=== PATIENT | female | born 2000 | race Caucasian/White ===

== ENCOUNTER 2020-07-02 13:28 | Emergency (ER) | payer BC ==
[2020-07-02] MEDS ORDERED: Zofran 4 MG/2 ML VIAL IV ONE (13:41)
[2020-07-02] MEDS ORDERED: Sodium Chloride 0.9% 1000 ML 1,000 ML IV STA (13:41)
[2020-07-02 13:47] VITALS: O2SAT 98
[2020-07-02] MEDS ORDERED: Sodium Chloride 0.9% 1000 ML 1,000 ML ONE (13:54)
[2020-07-02] MEDS ORDERED: Zofran 4 MG/2 ML VIAL ONE (13:54)
[2020-07-02 14:02] LABS: Absolute Neutrophil Ct (ANC) 8.12 (1.4-6.9); BASOPHIL % 0.3 % (0.0-0.4); Basophil (Absolute #) 0.03 (0-0.4); Eosinophil % 0.2 % (0.00-5.0); Eosinophil (Absolute #) 0.02 (0-0.5); Hematocrit 33.5 % (35-47); Hemoglobin 11.3 gm/dl (12.0-16.0); Lymphocyte (Absolute #) 1.54 (1.0-4.6); Lymphocytes % 14.8 % (24.0-44.0); Mean Cell Volume 89.8 fl (78-100); Mean Corpuscular Hemoglobin 30.3 pg (26-32); Mean Corpuscular Hgb Concent. 33.7 g/dl (32-36); Mean Platelet Volume 11.9 fl (7.5-11.0); Monocyte (Absolute #) 0.72 (0.0-1.3); Monocytes % 6.9 % (0.0-12.0); Neutrophil % 77.8 % (36.0-66.0); Platelet Count 235 K/mm3 (150-450); Red Blood Count 3.73 M/mm3 (4.1-5.4); Red Cell Distribution Width 13.6 % (11.5-14.0); White Blood Count 10.4 K/mm3 (4.0-10.5)
[2020-07-02 14:07] LABS: ALBUMIN 4.1 g/dL (3.5-5.0); ALKALINE PHOSPHATASE 57 U/L (38-126); ANION GAP 9.5 MEQ/L (5-15); BLOOD UREA NITROGEN 6 mg/dL (7-17); CHLORIDE 103 mmol/L (98-107); Calcium 9.3 mg/dL (8.4-10.2); Carbon Dioxide 26 mmol/L (22-30); Creatinine 1 0.58 mg/dL (0.52-1.04); EST GLOMERULAR FILTRATION RATE > 60.0 ML/MIN; Glucose 110 mg/dL (74-106); Potassium 3.2 mmol/L (3.5-5.1); SGOT/AST 20 U/L (14-36); SGPT/ALT 17 U/L (0-35); SODIUM 135 mmol/L (137-145); Total Protein 7.5 g/dL (6.3-8.2)
[2020-07-02 14:07] LABS: Appearance SLIGHTLY CLOUDY (CLEAR); Bilirubin NEGATIVE (NEGATIVE); Blood NEGATIVE Ery/ul (0-5); Epithelial Cells RARE /HPF (FEW); Glucose NEGATIVE (NEGATIVE); Ketones SMALL (NEGATIVE); Leukocyte Esterase NEGATIVE (NEGATIVE); Mucus SLIGHT /HPF (NEGATIVE); Nitrite NEGATIVE (NEGATIVE); Protein,Urine Dip 30 (Negative); Specific Gravity 1.016 (1.005-1.025); Urobilinogen NEGATIVE mg/dL (0-1)
[2020-07-02] MEDS ORDERED: Klor Con 10 MEQ PO ONE ×2 (14:17→14:19)
--- NOTE | 2020-07-02 14:29 | ERPHSYRPT ---
- History of Present Illness Time Seen by Provider: 07/02/20 14:00 Source: patient Exam Limitations: no limitations Patient Subjective Stated Complaint: pt here for nausea and vomiting 7 times today, she states her meds she was rx is not helping, she is 17 and 5 days pregn ant. Triage Nursing Assessment: pt alert, walked in, resp easy, skin w/d/p, face mask in place, abd soft, no vagianl dc Physician History: Patient is a 16-year-old female G1, P0 currently 17 weeks and 5 days presents to our ED for nausea and vomiting. Patient vomited approximately 7 times today. Patient called her [employer] physician who advised her to come to our ED. Patient otherwise asymptomatic. No fever. No vaginal pain. No vaginal discharge. No pelvic cramping. No chest pain or shortness of breath. Symptoms are mild to moderate in intensity. No specific worsening or improving factors. Patient voices no other complaints or concerns at this time. Timing/Duration: today Severity: moderate Modifying Factors: Improves With: nothing Associated Symptoms: nausea, vomiting, No abdominal pain, No shortness of breath, No heartburn, No diaphoresis, No cough, No chills, No chest pain, No fever, No headaches, No loss of appetite, No malaise Allergies/Adverse Reactions: Sulfa (Sulfonamide Antibiotics) Allergy (Verified 07/02/20 13:40) Home Medications: Doxylamine Succinate/Vit B6 [Diclegis Dr 10-10 mg Tablet] 2 ea DAILY 07/02/20 [History] Vit 87/Iron/Folic/Dha [Prenate Mini Softgel] 1 ea DAILY 07/02/20 [History] Hx Influenza Vaccination/Date Given: No Hx Pneumococcal Vaccination/Date Given: No Immunizations Up to Date: Yes Travel Risk - International Travel Have you traveled outside of the country in past 3 weeks: No - Coronavirus Screening Are you exhibiting any of the following symptoms?: No Close contact with a COVID-19 positive Pt in past 14-21 Days: No - Review of Systems Constitutional: No Symptoms, No Fever, No Chills Eyes: No Symptoms Ears, Nose, & Throat: No Symptoms Respiratory: No Symptoms, No Cough, No Dyspnea Cardiac: No Symptoms, No Chest Pain, No Edema, No Syncope Abdominal/Gastrointestinal: No Symptoms, No Abdominal Pain, No Nausea, No Vomiting, No Diarrhea Genitourinary Symptoms: No Symptoms, No Dysuria Musculoskeletal: No Symptoms, No Back Pain, No Neck Pain Skin: No Symptoms, No Rash Neurological: No Symptoms, No Dizziness, No Focal Weakness, No Sensory Changes Psychological: No Symptoms Endocrine: No Symptoms Hematologic/Lymphatic: No Symptoms Immunological/Allergic: No Symptoms All Other Systems: Reviewed and Negative - Past Medical History Pertinent Past Medical History: No - Past Surgical History Past Surgical History: Yes - Social History Smoking Status: Never smoker Exposure to second hand smoke: No Drug Use: none Patient Lives Alone: No - Female History Hx Now: Yes Expected Date of Delivery: 12/05/20 - Nursing Vital Signs Nursing Vital Signs: Initial Vital Signs Temperature 98.3 F 07/02/20 13:41 Pulse Rate 104 H 07/02/20 13:41 Respiratory Rate 18 07/02/20 13:41 Blood Pressure 116/65 07/02/20 13:41 O2 Sat by Pulse Oximetry 98 07/02/20 13:41 Pain Scale Pain Intensity 0 - Physical Exam General Appearance: no apparent distress, alert Eye Exam: PERRL/EOMI, eyes nml inspection Ears, Nose, Throat Exam: normal ENT inspection, TMs normal, pharynx normal, moist mucous membranes Neck Exam: normal inspection, non-tender, supple, full range of motion Respiratory Exam: normal breath sounds, lungs clear, No respiratory distress Cardiovascular Exam: regular rate/rhythm, normal heart sounds, normal peripheral pulses Gastrointestinal/Abdomen Exam: soft, normal bowel sounds, No tenderness, No mass Back Exam: normal inspection, normal range of motion, No CVA tenderness, No vertebral tenderness Extremity Exam: normal inspection, normal range of motion, pelvis stable Neurologic Exam: alert, oriented x 3, cooperative, normal mood/affect, nml cerebellar function, nml station & gait, sensation nml, No motor deficits Skin Exam: normal color, warm, dry, No rash Lymphatic Exam: No adenopathy SpO2 Interpretation: normal SpO2: 98 O2 Delivery: Room Air - Course Nursing assessment & vital signs reviewed: Yes Ordered Tests: Active Orders 24 hr Category Date Time Status IV Insertion STAT Care 07/02/20 13:41 Active CBC W DIFF Stat Lab 07/02/20 13:45 Completed CMP Stat Lab 07/02/20 13:45 Completed HCG QUALITATIVE,SERUM Stat Lab 07/02/20 13:45 Completed UA W/RFX UR CULTURE Stat Lab 07/02/20 13:52 Completed Medication Summary Generic Name Dose Route Start Last Admin Trade Name Freq PRN Reason Stop Dose Admin Sodium Chloride 1,000 mls @ 999 mls/hr 07/02/20 13:41 07/02/20 13:57 Sodium Chloride 0.9% 1000 Ml IV 07/02/20 14:41 999 mls/hr .Q1H1M STA Administration Discontinued Medications Generic Name Dose Route Start Last Admin Trade Name Freq PRN Reason Stop Dose Admin Sodium Chloride Confirm 07/02/20 13:54 Sodium Chloride 0.9% 1000 Ml Administered 07/02/20 13:55 Dose 1,000 mls @ ud .ROUTE .STK-MED ONE Ondansetron HCl 4 mg 07/02/20 13:41 07/02/20 13:58 Zofran 4 Mg/2 Ml Vial IV 07/02/20 13:42 4 mg STAT ONE Administration Ondansetron HCl Confirm 07/02/20 13:54 Zofran 4 Mg/2 Ml Vial Administered 07/02/20 13:55 Dose 4 mg .ROUTE .STK-MED ONE Potassium Chloride 40 meq 07/02/20 14:17 07/02/20 14:20 Klor Con 10 Meq PO 07/02/20 14:18 40 meq STAT ONE Administration Potassium Chloride Confirm 07/02/20 14:19 Klor Con 10 Meq Administered 07/02/20 14:20 Dose 40 meq PO .STK-MED ONE Lab/Rad Data: Laboratory Result Diagrams 07/02/20 13:45 07/02/20 13:45 Laboratory Results 07/02/20 07/02/20 07/02/20 Range/Units 13:52 13:45 13:45 WBC (4.0-10.5) K/mm3 RBC (4.1-5.4) M/mm3 Hgb (12.0-16.0) gm/dl Hct (35-47) % MCV (78-100) fl MCH (26-32) pg MCHC (32-36) g/dl RDW (11.5-14.0) % Plt Count (150-450) K/mm3 MPV (7.5-11.0) fl Gran % (36.0-66.0) % Eos # (Auto) (0-0.5) Absolute Lymphs (auto) (1.0-4.6) Absolute Monos (auto) (0.0-1.3) Lymphocytes % (24.0-44.0) % Monocytes % (0.0-12.0) % Eosinophils % (0.00-5.0) % Basophils % (0.0-0.4) % Absolute Granulocytes (1.4-6.9) Basophils # (0-0.4) Sodium 135 L (137-145) mmol/L Potassium 3.2 L (3.5-5.1) mmol/L Chloride 103 (98-107) mmol/L Carbon Dioxide 26 (22-30) mmol/L Anion Gap 9.5 (5-15) MEQ/L BUN 6 L (7-17) mg/dL Creatinine 0.58 (0.52-1.04) mg/dL Estimated GFR > 60.0 ML/MIN Glucose 110 H (74-106) mg/dL Calcium 9.3 (8.4-10.2) mg/dL Total Bilirubin 0.30 (0.2-1.3) mg/dL AST 20 (14-36) U/L ALT 17 (0-35) U/L Alkaline Phosphatase 57 (38-126) U/L Serum Total Protein 7.5 (6.3-8.2) g/dL Albumin 4.1 (3.5-5.0) g/dL Serum , Qual POSITIVE (Negative) Urine Color YELLOW (YELLOW) Urine Appearance SLIGHTLY CLOUDY (CLEAR) Urine pH 6.0 (5-6) Ur Specific [place] 1.016 (1.005-1.025) Urine Protein 30 (Negative) Urine Ketones SMALL (NEGATIVE) Urine Blood NEGATIVE (0-5) Kwan/ul Urine Nitrite NEGATIVE (NEGATIVE) Urine Bilirubin NEGATIVE (NEGATIVE) Urine Urobilinogen NEGATIVE (0-1) mg/dL Ur Leukocyte Esterase NEGATIVE (NEGATIVE) Urine WBC (Auto) 3-5 (0-5) /HPF Urine RBC (Auto) 3-5 (0-2) /HPF U Epithel Cells (Auto) RARE (FEW) /HPF Urine Bacteria (Auto) NONE (NEGATIVE) /HPF Urine Mucus (Auto) SLIGHT (NEGATIVE) /HPF Urine Culture Reflexed NO (NO) Urine Glucose NEGATIVE (NEGATIVE) mg/dL 07/02/20 Range/Units 13:45 WBC 10.4 (4.0-10.5) K/mm3 RBC 3.73 L (4.1-5.4) M/mm3 Hgb 11.3 L (12.0-16.0) gm/dl Hct 33.5 L (35-47) % MCV 89.8 (78-100) fl MCH 30.3 (26-32) pg MCHC 33.7 (32-36) g/dl RDW 13.6 (11.5-14.0) % Plt Count 235 (150-450) K/mm3 MPV 11.9 H (7.5-11.0) fl Gran % 77.8 H (36.0-66.0) % Eos # (Auto) 0.02 (0-0.5) Absolute Lymphs (auto) 1.54 (1.0-4.6) Absolute Monos (auto) 0.72 (0.0-1.3) Lymphocytes % 14.8 L (24.0-44.0) % Monocytes % 6.9 (0.0-12.0) % Eosinophils % 0.2 (0.00-5.0) % Basophils % 0.3 (0.0-0.4) % Absolute Granulocytes 8.12 H (1.4-6.9) Basophils # 0.03 (0-0.4) Sodium (137-145) mmol/L Potassium (3.5-5.1) mmol/L Chloride (98-107) mmol/L Carbon Dioxide (22-30) mmol/L Anion Gap (5-15) MEQ/L BUN (7-17) mg/dL Creatinine (0.52-1.04) mg/dL Estimated GFR ML/MIN Glucose (74-106) mg/dL Calcium (8.4-10.2) mg/dL Total Bilirubin (0.2-1.3) mg/dL AST (14-36) U/L ALT (0-35) U/L Alkaline Phosphatase (38-126) U/L Serum Total Protein (6.3-8.2) g/dL Albumin (3.5-5.0) g/dL Serum , Qual (Negative) Urine Color (YELLOW) Urine Appearance (CLEAR) Urine pH (5-6) Ur Specific [place] (1.005-1.025) Urine Protein (Negative) Urine Ketones (NEGATIVE) Urine Blood (0-5) Kwan/ul Urine Nitrite (NEGATIVE) Urine Bilirubin (NEGATIVE) Urine Urobilinogen (0-1) mg/dL Ur Leukocyte Esterase (NEGATIVE) Urine WBC (Auto) (0-5) /HPF Urine RBC (Auto) (0-2) /HPF U Epithel Cells (Auto) (FEW) /HPF Urine Bacteria (Auto) (NEGATIVE) /HPF Urine Mucus (Auto) (NEGATIVE) /HPF Urine Culture Reflexed (NO) Urine Glucose (NEGATIVE) mg/dL - Progress Progress: improved Progress Note: 07/02/20 14:28 Patient reassessed. She feels well. IV fluids infused. Nausea resolved after Zofran. Work-up reveals hypokalemia at 3.2. Potassium replaced. Patient states ready for discharge. Case discussed with Dr. Wilkinson who agrees on disposition. Will discharge patient home. Zofran prescription will be forw arded the patient's pharmacy. Patient agrees to follow-up with her primary care doctor within 48 hours for reevaluation. Discussed with DrYovany: Donna Counseled pt/family regarding: lab results, diagnosis, need for follow-up - Departure Departure Disposition: Home Clinical Impression: Nausea and vomiting during , Hypokalemia Condition: Stable Critical Care Time: No Referrals: ISMAEL WILKINSON DO [ACTIVE STAFF] - Additional Instructions: Discharge/Care Plan MAURA TIPTON was seen on 07/02/20 in the Emergency Room. The patient was counseled regarding Diagnosis,Lab results, Imaging studies, need for follow up and when to return to the Emergency Room. Prescriptions given: Discharge Note I have spoken with the patient and/or caregivers. I have explained the patient's condition, diagnosis and treatment plan based on the information available to me at this time. I have answered the patient's and/or caregiver's questions and addressed any concerns. The patient and/or caregivers have as good understanding of the patient's diagnosis, condition and treatment plan as can be expected at this point. The vital signs have been stable. The patient's condition is stable and appropriate for discharge from the emergency department. The patient will pursue further outpatient evaluation with the primary care physician or other designated or consulting physician as outlined in the discharge instructions. The patient and/or caregivers are agreeable to this plan of care and follow-up instructions have been explained in detail. The patient and/or caregivers have received these instruction. The patient/and or caregivers are aware that any significant change in condition or worsening of symptoms should prompt an immediate return to this or the closest emergency department or call 911. Prescriptions: Ondansetron ODT 4 MG [Zofran Odt 4 mg] 4 mg PO Q6H PRN PRN #10 tab.rapdis PRN Reason: Vomiting
[2020-07-02 15:37] VITALS: BP 121/71; PULSE 64
== END 2020-07-02 15:42 | disposition home or self-care (01) ==
LOC: ED 13:28
DX: O21.0 Mild hyperemesis gravidarum (principal); O21.1 Hyperemesis gravidarum with metabolic disturbance; Z3A.17 17 weeks gestation of pregnancy
CPT/HCPCS: 36000; 36415; 80053; 81001; 81025; 85025; 96360; 96374; 99284; J2405; A9270-GY

== ENCOUNTER 2020-09-04 14:55 | Observation (INO) | payer BC ==
[2020-09-04 15:52] VITALS: BP 122/58
[2020-09-04 16:27] VITALS: PULSE 75
--- NOTE | 2020-09-04 16:28 | XRAY ---
Indication: Decreased movement. Ultrasound biophysical profile exam performed. Comparison: None There is a single viable intrauterine with heart rate 132 BPM. Four-quadrant CESAR is 12.9 cm. Largest pocket 4.1 cm. 2 points given for breathing, movements, tone, and qualitative amniotic fluid volume. Impression: Total biophysical profile score is 8 out of 8.
== END 2020-09-04 16:10 | disposition home or self-care (01) ==
LOC: MED SURG 14:55 → UNDOADMOB 14:55 → UNDODISOB 16:10
PROVIDERS: ADMIT Obstetrics & Gynecology; ATTEND Obstetrics & Gynecology
DX: Z34.82 Encounter for supervision of other normal pregnancy, second trimester (principal); Z3A.26 26 weeks gestation of pregnancy
CPT/HCPCS: 76818; G0378

== ENCOUNTER 2020-11-16 08:59 | Observation (INO) | payer BC ==
[2020-11-16 09:24] VITALS: BP 135/70; PULSE 86
[2020-11-16 09:29] LABS: Hematocrit 32.5 % (35-47); Hemoglobin 10.6 gm/dl (12.0-16.0); Mean Cell Volume 87.8 fl (78-100); Mean Corpuscular Hemoglobin 28.6 pg (26-32); Mean Corpuscular Hgb Concent. 32.6 g/dl (32-36); Mean Platelet Volume 11.8 fl (7.5-11.0); Platelet Count 231 K/mm3 (150-450); Red Cell Distribution Width 13.5 % (11.5-14.0); White Blood Count 10.7 K/mm3 (4.0-10.5)
[2020-11-16 10:15] LABS: ALBUMIN 3.6 g/dL (3.5-5.0); ALKALINE PHOSPHATASE 146 U/L (38-126); BLOOD UREA NITROGEN 8 mg/dL (7-17); CHLORIDE 105 mmol/L (98-107); Calcium 9.1 mg/dL (8.4-10.2); Carbon Dioxide 22 mmol/L (22-30); Creatinine 1 0.54 mg/dL (0.52-1.04); EST GLOMERULAR FILTRATION RATE > 60.0 ML/MIN; Glucose 131 mg/dL (74-106); Potassium 3.7 mmol/L (3.5-5.1); SGOT/AST 17 U/L (14-36); SGPT/ALT 12 U/L (0-35); SODIUM 135 mmol/L (137-145); Total Protein 6.7 g/dL (6.3-8.2); Uric Acid 4.2 mg/dL (2.6-6.0)
--- NOTE | 2020-11-16 11:05 | XRAY ---
Indication: growth. 2-dimensional OB ultrasound performed. Comparison: October 10 2020. Again there is a single viable intrauterine in cephalic presentation. heart rate 147 BPM. The umbilical cord is adjacent to the neck. Again posterior placenta without abruption/previa. Cervical length is 3.6 cm. BPD measures 9.15 cm corresponding to 37 weeks 1 day. HC measures 33.30 cm corresponding to 38 weeks 0 days. AC measures 33.37 cm corresponding to 37 weeks 2 days. FL measures 7.26 cm corresponding to 37 weeks 1 day. Estimated weight 7 lbs. 0 oz., +/-1 lb. 1 oz. Approximately 59 percentile. CESAR is 14.1 cm. Impression: Again single viable intrauterine with mean gestational age 37 weeks 3 days. Normal progression of . Umbilical cord adjacent to the neck.
[2020-11-16 11:09] LABS: Appearance SLIGHTLY CLOUDY (CLEAR); Bilirubin NEGATIVE (NEGATIVE); Blood NEGATIVE Ery/ul (0-5); Epithelial Cells RARE /HPF (FEW); Glucose NEGATIVE (NEGATIVE); Ketones NEGATIVE (NEGATIVE); Leukocyte Esterase NEGATIVE (NEGATIVE); Mucus SLIGHT /HPF (NEGATIVE); Nitrite NEGATIVE (NEGATIVE); Protein,Urine Dip NEGATIVE (Negative); RBC 0-2 /HPF (0-2); Specific Gravity 1.018 (1.005-1.025); Urobilinogen NEGATIVE mg/dL (0-1)
[2020-11-16 11:10] LABS: Bacteria FEW /HPF (NEGATIVE)
[2020-11-16 11:32] LABS: Creatinine, Urine Random 140.2 mg/dl
== END 2020-11-16 11:47 | disposition home or self-care (01) ==
LOC: OB 08:59
PROVIDERS: ADMIT Obstetrics & Gynecology; ATTEND Obstetrics & Gynecology
DX: O12.13 Gestational proteinuria, third trimester (principal); Z3A.37 37 weeks gestation of pregnancy
CPT/HCPCS: 36415; 59025; 76816; 80053; 81001; 82570; 84156; 84550; 85027; G0378

== ENCOUNTER 2020-11-19 10:21 | Observation (INO) | payer BC ==
[2020-11-19 11:53] VITALS: BP 122/78; PULSE 109
[2020-11-19 12:06] LABS: Hematocrit 32.3 % (35-47); Hemoglobin 10.4 gm/dl (12.0-16.0); Mean Cell Volume 89.2 fl (78-100); Mean Corpuscular Hemoglobin 28.7 pg (26-32); Mean Corpuscular Hgb Concent. 32.2 g/dl (32-36); Mean Platelet Volume 11.8 fl (7.5-11.0); Platelet Count 240 K/mm3 (150-450); Red Blood Count 3.62 M/mm3 (4.1-5.4); Red Cell Distribution Width 13.6 % (11.5-14.0); White Blood Count 11.3 K/mm3 (4.0-10.5)
[2020-11-19 12:15] LABS: ALBUMIN 3.9 g/dL (3.5-5.0); ALKALINE PHOSPHATASE 137 U/L (38-126); ANION GAP 13.7 MEQ/L (5-15); BILIRUBIN,TOTAL < 0.10 mg/dL (0.2-1.3); BLOOD UREA NITROGEN 10 mg/dL (7-17); CHLORIDE 104 mmol/L (98-107); Calcium 9.2 mg/dL (8.4-10.2); Carbon Dioxide 22 mmol/L (22-30); Creatinine 1 0.56 mg/dL (0.52-1.04); EST GLOMERULAR FILTRATION RATE > 60.0 ML/MIN; Glucose 94 mg/dL (74-106); Potassium 3.6 mmol/L (3.5-5.1); SGOT/AST 18 U/L (14-36); SGPT/ALT 11 U/L (0-35); SODIUM 136 mmol/L (137-145); Total Protein 6.8 g/dL (6.3-8.2)
[2020-11-19 13:18] LABS: Appearance CLOUDY (CLEAR); Bacteria PACKED /HPF (NEGATIVE); Bilirubin NEGATIVE (NEGATIVE); Blood NEGATIVE Ery/ul (0-5); Epithelial Cells RARE /HPF (FEW); Glucose 50 mg/dL (NEGATIVE); Ketones NEGATIVE (NEGATIVE); Leukocyte Esterase TRACE (NEGATIVE); Mucus SLIGHT /HPF (NEGATIVE); Nitrite NEGATIVE (NEGATIVE); Protein,Urine Dip NEGATIVE (Negative); Specific Gravity 1.015 (1.005-1.025); Urobilinogen NEGATIVE mg/dL (0-1)
[2020-11-19 13:40] LABS: Creatinine, Urine Random 95.4 mg/dl
[2020-11-19 14:33] LABS: Lymphocytes 20 % (24-44); Monocyte 7 % (0.0-12.0); Neutrophils 73 % (36.0-66.0); Platelet Estimate NORMAL (NORMAL); Total Cells Counted 100
== END 2020-11-19 14:10 | disposition home or self-care (01) ==
LOC: WHC 10:21 → OB 11:02
PROVIDERS: ADMIT Obstetrics & Gynecology; ATTEND Obstetrics & Gynecology
DX: O13.3 Gestational [pregnancy-induced] hypertension without significant proteinuria, third trimester (principal); Z3A.37 37 weeks gestation of pregnancy
CPT/HCPCS: 36415; 59025; 59426; 80053; 81001; 82570; 84156; 84550; 85025; 87086; G0378; 81002

== ENCOUNTER 2020-11-22 13:45 | Observation (INO) | payer BC ==
[2020-11-22 14:12] VITALS: BP 133/78; PULSE 85
== END 2020-11-22 14:30 | disposition home or self-care (01) ==
LOC: OB 13:45
PROVIDERS: ADMIT Obstetrics & Gynecology; ATTEND Obstetrics & Gynecology
DX: O13.3 Gestational [pregnancy-induced] hypertension without significant proteinuria, third trimester (principal); Z3A.38 38 weeks gestation of pregnancy
CPT/HCPCS: 59025; G0378

== ENCOUNTER 2020-11-27 10:04 | Observation (INO) | payer BC, MEDICAID ==
[2020-11-27 10:50] LABS: Hematocrit 33.2 % (35-47); Hemoglobin 10.7 gm/dl (12.0-16.0); Mean Cell Volume 88.5 fl (78-100); Mean Corpuscular Hemoglobin 28.5 pg (26-32); Mean Corpuscular Hgb Concent. 32.2 g/dl (32-36); Mean Platelet Volume 11.6 fl (7.5-11.0); Platelet Count 254 K/mm3 (150-450); Red Blood Count 3.75 M/mm3 (4.1-5.4); Red Cell Distribution Width 13.9 % (11.5-14.0)
[2020-11-27 10:52] LABS: Appearance CLOUDY (CLEAR); Bacteria MODERATE /HPF (NEGATIVE); Bilirubin NEGATIVE (NEGATIVE); Blood NEGATIVE Ery/ul (0-5); Epithelial Cells MANY /HPF (FEW); Glucose NEGATIVE (NEGATIVE); Ketones NEGATIVE (NEGATIVE); Leukocyte Esterase TRACE (NEGATIVE); Mucus SLIGHT /HPF (NEGATIVE); Nitrite NEGATIVE (NEGATIVE); Protein,Urine Dip 100 (Negative); RBC 0-2 /HPF (0-2); Specific Gravity 1.028 (1.005-1.025); Urobilinogen NEGATIVE mg/dL (0-1)
[2020-11-27 11:02] LABS: ALBUMIN 3.7 g/dL (3.5-5.0); ALKALINE PHOSPHATASE 173 U/L (38-126); BLOOD UREA NITROGEN 9 mg/dL (7-17); CHLORIDE 104 mmol/L (98-107); Calcium 8.7 mg/dL (8.4-10.2); Carbon Dioxide 22 mmol/L (22-30); Creatinine 1 0.57 mg/dL (0.52-1.04); EST GLOMERULAR FILTRATION RATE > 60.0 ML/MIN; Glucose 123 mg/dL (74-106); Potassium 3.5 mmol/L (3.5-5.1); SGOT/AST 18 U/L (14-36); SGPT/ALT 13 U/L (0-35); SODIUM 135 mmol/L (137-145); Total Protein 6.9 g/dL (6.3-8.2)
[2020-11-27 11:06] VITALS: O2SAT 96
[2020-11-27 11:12] LABS: Creatinine, Urine Random 321.9 mg/dl
[2020-11-27 12:02] LABS: Basophil 1 % (0.0-1.0); Lymphocytes 11 % (24-44); Monocyte 2 % (0.0-12.0); Neutrophils 86 % (36.0-66.0); Total Cells Counted 100
[2020-11-27 12:05] LABS: Platelet Estimate NORMAL (NORMAL)
[2020-11-27 13:13] VITALS: BP 136/65; PULSE 86
== END 2020-11-27 12:00 | disposition home or self-care (01) ==
LOC: OB 10:04
PROVIDERS: ADMIT Obstetrics & Gynecology; ATTEND Obstetrics & Gynecology
DX: O13.3 Gestational [pregnancy-induced] hypertension without significant proteinuria, third trimester (principal); Z3A.38 38 weeks gestation of pregnancy
CPT/HCPCS: 36415; 59025; 80053; 81001; 82570; 84156; 84550; 85025; 87086; G0378

== ENCOUNTER 2020-12-01 15:36 | Observation (INO) | payer BC, MEDICAID ==
[2020-12-01 16:20] LABS: Hematocrit 32.9 % (35-47); Hemoglobin 10.8 gm/dl (12.0-16.0); Mean Corpuscular Hemoglobin 28.6 pg (26-32); Mean Corpuscular Hgb Concent. 32.8 g/dl (32-36); Mean Platelet Volume 11.9 fl (7.5-11.0); Platelet Count 259 K/mm3 (150-450); Red Blood Count 3.78 M/mm3 (4.1-5.4); White Blood Count 12.7 K/mm3 (4.0-10.5)
[2020-12-01 16:33] LABS: ALBUMIN 3.7 g/dL (3.5-5.0); ALKALINE PHOSPHATASE 167 U/L (38-126); ANION GAP 13.3 MEQ/L (5-15); BLOOD UREA NITROGEN 10 mg/dL (7-17); CHLORIDE 105 mmol/L (98-107); Calcium 9.1 mg/dL (8.4-10.2); Carbon Dioxide 21 mmol/L (22-30); Creatinine 1 0.59 mg/dL (0.52-1.04); EST GLOMERULAR FILTRATION RATE > 60.0 ML/MIN; Glucose 146 mg/dL (74-106); Potassium 3.5 mmol/L (3.5-5.1); SGOT/AST 19 U/L (14-36); SGPT/ALT 14 U/L (0-35); SODIUM 136 mmol/L (137-145); Total Protein 6.7 g/dL (6.3-8.2); Uric Acid 5.4 mg/dL (2.6-6.0)
[2020-12-01 16:35] LABS: Appearance CLOUDY (CLEAR); Bacteria MANY /HPF (NEGATIVE); Bilirubin NEGATIVE (NEGATIVE); Blood NEGATIVE Ery/ul (0-5); Epithelial Cells MODERATE /HPF (FEW); Glucose NEGATIVE (NEGATIVE); Ketones NEGATIVE (NEGATIVE); Leukocyte Esterase LARGE (NEGATIVE); Mucus SLIGHT /HPF (NEGATIVE); Nitrite NEGATIVE (NEGATIVE); Protein,Urine Dip NEGATIVE (Negative); Specific Gravity 1.014 (1.005-1.025); Urobilinogen NEGATIVE mg/dL (0-1)
[2020-12-01 16:53] LABS: Creatinine, Urine Random 95.9 mg/dl
[2020-12-01 17:35] VITALS: BP 135/77; PULSE 87
[2020-12-01 20:12] LABS: BAND 2 % (0.0-2.0); Lymphocytes 8 % (24-44); Monocyte 2 % (0.0-12.0); Neutrophils 88 % (36.0-66.0); Platelet Estimate NORMAL (NORMAL); Total Cells Counted 100
== END 2020-12-01 17:20 | disposition home or self-care (01) ==
LOC: OB 15:36
PROVIDERS: ADMIT Obstetrics & Gynecology; ATTEND Obstetrics & Gynecology
DX: O14.93 Unspecified pre-eclampsia, third trimester (principal); Z3A.39 39 weeks gestation of pregnancy
CPT/HCPCS: 36415; 59025; 80053; 81001; 82570; 84156; 84550; 85025; 87086; G0378

== ENCOUNTER 2020-12-03 23:03 | Observation (INO) | payer BC, MEDICAID ==
[2020-12-03 23:38] LABS: Hemoglobin 10.4 gm/dl (12.0-16.0); Mean Cell Volume 87.7 fl (78-100); Mean Corpuscular Hemoglobin 28.5 pg (26-32); Mean Corpuscular Hgb Concent. 32.5 g/dl (32-36); Mean Platelet Volume 11.9 fl (7.5-11.0); Platelet Count 248 K/mm3 (150-450); Red Blood Count 3.65 M/mm3 (4.1-5.4); Red Cell Distribution Width 13.9 % (11.5-14.0); White Blood Count 12.1 K/mm3 (4.0-10.5)
[2020-12-03 23:43] VITALS: O2SAT 98
[2020-12-03 23:47] LABS: Creatinine, Urine Random 117.4 mg/dl
[2020-12-03 23:51] LABS: Appearance SLIGHTLY CLOUDY (CLEAR); Bacteria RARE /HPF (NEGATIVE); Bilirubin NEGATIVE (NEGATIVE); Blood NEGATIVE Ery/ul (0-5); Epithelial Cells RARE /HPF (FEW); Glucose NEGATIVE (NEGATIVE); Ketones TRACE (NEGATIVE); Leukocyte Esterase NEGATIVE (NEGATIVE); Mucus SLIGHT /HPF (NEGATIVE); Nitrite NEGATIVE (NEGATIVE); Protein,Urine Dip NEGATIVE (Negative); Specific Gravity 1.016 (1.005-1.025); Urobilinogen NEGATIVE mg/dL (0-1); WBC 0-2 /HPF (0-5)
[2020-12-03 23:57] LABS: ALBUMIN 3.7 g/dL (3.5-5.0); ALKALINE PHOSPHATASE 171 U/L (38-126); ANION GAP 11.7 MEQ/L (5-15); Amphetamine,Urine NEGATIVE (NEGATIVE); BLOOD UREA NITROGEN 10 mg/dL (7-17); Barbiturate,Urine NEGATIVE (NEGATIVE); Benzodiazepine,Urine NEGATIVE (NEGATIVE); CHLORIDE 107 mmol/L (98-107); Carbon Dioxide 20 mmol/L (22-30); Cocaine,Urine NEGATIVE (NEGATIVE); Creatinine 1 0.66 mg/dL (0.52-1.04); EST GLOMERULAR FILTRATION RATE > 60.0 ML/MIN; Glucose 94 mg/dL (74-106); Methadone,Urine NEGATIVE (NEGATIVE); Opiate,Urine NEGATIVE (NEGATIVE); PCP,Urine NEGATIVE (NEGATIVE); Potassium 3.5 mmol/L (3.5-5.1); SGOT/AST 18 U/L (14-36); SGPT/ALT 13 U/L (0-35); SODIUM 135 mmol/L (137-145); THC,Urine NEGATIVE (NEGATIVE); Total Protein 6.7 g/dL (6.3-8.2); Uric Acid 4.9 mg/dL (2.6-6.0)
[2020-12-04 02:27] VITALS: BP 135/69; PULSE 82
[2020-12-04 03:15] LABS: Eosinophil 2 % (0.00-3.0); Lymphocytes 19 % (24-44); Monocyte 6 % (0.0-12.0); Neutrophils 73 % (36.0-66.0); Platelet Estimate NORMAL (NORMAL); Total Cells Counted 100
== END 2020-12-04 01:55 | disposition home or self-care (01) ==
LOC: UNDOADMOB 23:03 → OB 23:03 → UNDODISOB 12-04 01:55
PROVIDERS: ADMIT Obstetrics & Gynecology; ATTEND Obstetrics & Gynecology
DX: O13.3 Gestational [pregnancy-induced] hypertension without significant proteinuria, third trimester (principal); Z3A.39 39 weeks gestation of pregnancy
CPT/HCPCS: 36415; 80053; 80307; 81001; 82570; 84156; 84550; 85025; G0378

== ENCOUNTER 2020-12-04 15:09 | Observation (INO) | payer BC, MEDICAID ==
[2020-12-04 15:54] VITALS: BP 145/72
== END 2020-12-04 17:00 | disposition home or self-care (01) ==
LOC: OB 15:09
PROVIDERS: ADMIT Obstetrics & Gynecology; ATTEND Obstetrics & Gynecology
DX: O13.3 Gestational [pregnancy-induced] hypertension without significant proteinuria, third trimester (principal); Z3A.39 39 weeks gestation of pregnancy
CPT/HCPCS: 59025; G0378

== ENCOUNTER 2020-12-06 06:13 | Inpatient (IN) | payer BC, MEDICAID ==
[2020-12-06] MEDS ORDERED: XYLOCAINE 1% HCL 20 ML MDV IJ PRN (08:42)
[2020-12-06] MEDS ORDERED: Zofran 4 MG/2 ML VIAL IV PRN (08:42)
[2020-12-06] MEDS ORDERED: TYLENOL EXTRA STRENGTH 500 MG PO PRN (08:42)
[2020-12-06] MEDS ORDERED: PITOCIN 30 UNITS/ LR 500 ML 30 UNITS/500 ML IV.SOLN. IV SCH (09:00)
[2020-12-06 09:03] LABS: Amphetamine,Urine NEGATIVE (NEGATIVE); Barbiturate,Urine NEGATIVE (NEGATIVE); Benzodiazepine,Urine NEGATIVE (NEGATIVE); Cocaine,Urine NEGATIVE (NEGATIVE); Methadone,Urine NEGATIVE (NEGATIVE); Opiate,Urine NEGATIVE (NEGATIVE); PCP,Urine NEGATIVE (NEGATIVE); THC,Urine NEGATIVE (NEGATIVE)
[2020-12-06] MEDS: Lactated Ringers 1,000 ML IV SCH ×3 (09:08→23:53)
[2020-12-06 09:12] LABS: Hematocrit 32.5 % (35-47); Hemoglobin 10.6 gm/dl (12.0-16.0); Mean Cell Volume 86.9 fl (78-100); Mean Corpuscular Hemoglobin 28.3 pg (26-32); Mean Corpuscular Hgb Concent. 32.6 g/dl (32-36); Mean Platelet Volume 11.7 fl (7.5-11.0); Platelet Count 227 K/mm3 (150-450); Red Blood Count 3.74 M/mm3 (4.1-5.4); White Blood Count 15.3 K/mm3 (4.0-10.5)
[2020-12-06] MEDS ORDERED: OB EPIDURAL NAROPIN/SUFENTANIL IN NACL EPIDURAL PRN (11:25)
[2020-12-06] MEDS ORDERED: Ephedrine Sulfate 50 MG/ML IV PRN (11:25)
[2020-12-06] MEDS ORDERED: Lactated Ringers 1,000 ML IV ONE (11:25)
[2020-12-06 12:02] LABS: BAND 3 % (0.0-2.0); Lymphocytes 10 % (24-44); Monocyte 5 % (0.0-12.0); Neutrophils 82 % (36.0-66.0); Platelet Estimate NORMAL (NORMAL); Total Cells Counted 100
[2020-12-06] MEDS ORDERED: Lactated Ringers 1,000 ML IV SCH (15:30)
[2020-12-06] MEDS ORDERED: CEFAZOLIN 2 GM-D5W BAG** 2 GM/50 ML ML IV SCH (15:30)
[2020-12-06] MEDS ORDERED: Reglan 10 MG/2 ML IV SCH (15:30)
[2020-12-06] MEDS ORDERED: Pepcid 20 MG VIAL IV SCH (15:30)
[2020-12-06] MEDS ORDERED: SOD CITRATE-CITRIC ACID SOLN PO SCH (15:30)
[2020-12-06 15:54] LABS: INR 1.11 (0.8-3.0); PROTIME 12.5 SECONDS (9.95-12.35)
[2020-12-06] MEDS ORDERED: PHENYLEPHRINE HCL ONE (15:56)
[2020-12-06] MEDS ORDERED: SUBLIMAZE 100 MCG/2 ML ONE (15:56)
[2020-12-06] MEDS ORDERED: XYLOCAINE 2%/Epi 1:200000 20ML VIAL MPF ONE (15:56)
[2020-12-06 15:57] LABS: PTT 24.5 SECONDS (25.3-37.0)
[2020-12-06 16:02] LABS: Appearance CLEAR (CLEAR); Bilirubin NEGATIVE (NEGATIVE); Blood MODERATE Ery/ul (0-5); Glucose NEGATIVE (NEGATIVE); Ketones TRACE (NEGATIVE); Leukocyte Esterase NEGATIVE (NEGATIVE); Nitrite NEGATIVE (NEGATIVE); Protein,Urine Dip NEGATIVE (Negative); Specific Gravity 1.013 (1.005-1.025); Urobilinogen NEGATIVE mg/dL (0-1)
[2020-12-06 16:07] LABS: Bacteria NONE SEEN /HPF (NEGATIVE); RBC >101 /HPF (0-2)
[2020-12-06 16:22] LABS: ABO TYPING A
[2020-12-06 16:23] LABS: Antibody Screen NEGATIVE (NEGATIVE); RH TYPING POSITIVE
[2020-12-06] MEDS ORDERED: Decadron 4 MG INJ ONE ×3 (16:28→17:00)
[2020-12-06] MEDS ORDERED: Naropin 0.5% 30 ML VIAL ONE (16:28)
[2020-12-06] MEDS ORDERED: EPINEPHRINE 1MG/ML AMP ONE (16:29)
[2020-12-06] MEDS ORDERED: Pitocin 10 UNITS/ML ONE (16:29)
[2020-12-06] MEDS ORDERED: Zofran 4 MG/2 ML VIAL ONE ×2 (16:31→17:00)
[2020-12-06] MEDS ORDERED: Astramorph-Pf 5 MG/10 ML ONE (16:42)
[2020-12-06] MEDS ORDERED: Mylicon 80MG PO PRN (16:58)
[2020-12-06] MEDS ORDERED: CORTISONE 1% CREAM TP PRN (16:58)
[2020-12-06] MEDS ORDERED: TUCKS TP PRN (16:58)
[2020-12-06] MEDS ORDERED: LANSINOH 40 GM TOP PRN (16:58)
[2020-12-06] MEDS ORDERED: Anucort-HC SUPPOSITORY PR PRN (16:58)
[2020-12-06] MEDS ORDERED: BENADRYL 50 MG/ML IV PRN (17:00)
[2020-12-06] MEDS ORDERED: CLARITIN 10 MG PO PRN (17:00)
[2020-12-06] MEDS ORDERED: Nubain 10 MG/ML IV PRN (17:00)
[2020-12-06] MEDS ORDERED: Narcan 0.4 MG/ML IV PRN (17:00)
[2020-12-06] MEDS ORDERED: MORPHINE SULFATE 2 MG INJ IV PRN (17:00)
[2020-12-06] MEDS ORDERED: HOLD NARCOTIC ANALGESICS AND SEDATIVES X24 HR MC PRN (17:00)
[2020-12-06] MEDS ORDERED: TORAdol 30 mg Injection ONE (17:00)
[2020-12-06] MEDS ORDERED: PERCOCET TABLET 5/325MG PO PRN (17:00)
[2020-12-06] MEDS ORDERED: DEMEROL 50 MG IV PRN (17:00)
[2020-12-06] MEDS ORDERED: Adacel Vial IM ONE (20:00)
[2020-12-06] MEDS: Colace 100 MG PO SCH (21:22)
[2020-12-06] MEDS: Dextrose 5%-Lr IV Solution 1000 ML 1,000 ML IV SCH (21:22)
[2020-12-06] MEDS ORDERED: KEFZOL 1 GM/50 ML PREMIX** 1 GM/50 ML IVPB IV SCH (22:00)
[2020-12-07] MEDS: Dextrose 5%-Lr IV Solution 1000 ML 1,000 ML IV SCH ×3 (01:28→23:14)
[2020-12-07 05:08] LABS: Eosinophil (Absolute #) 0 (0-0.5); Hematocrit 24.9 % (35-47); Mean Cell Volume 88.6 fl (78-100); Mean Corpuscular Hemoglobin 28.5 pg (26-32); Mean Corpuscular Hgb Concent. 32.1 g/dl (32-36); Mean Platelet Volume 12.6 fl (7.5-11.0); Platelet Count 224 K/mm3 (150-450); Red Blood Count 2.81 M/mm3 (4.1-5.4); Red Cell Distribution Width 13.9 % (11.5-14.0); White Blood Count 17.8 K/mm3 (4.0-10.5)
[2020-12-07 05:40] LABS: BAND 2 % (0.0-2.0); Lymphocytes 6 % (24-44); Monocyte 3 % (0.0-12.0); Neutrophils 89 % (36.0-66.0); Platelet Estimate NORMAL (NORMAL); Total Cells Counted 100
[2020-12-07] MEDS ORDERED: KEFZOL 1 GM/50 ML PREMIX** 1 GM/50 ML IVPB IV SCH (08:00)
--- NOTE | 2020-12-07 09:14 | OP ---
SURGERY DATE/TIME: 12/06/2020 0753 PREOPERATIVE DIAGNOSES: 1) Non-reassuring heart tones. 2) Term intrauterine in active labor. POSTOPERATIVE DIAGNOSES: 1) Non-reassuring heart tones. 2) Term intrauterine in active labor. PROCEDURE: Primary low transverse section. SURGEON: Jonnie Washington M.D. ANESTHESIA: Epidural by Petey Thomas CRNA. ESTIMATED BLOOD LOSS: 500 cc. IV FLUIDS: 1500 cc of Crystalloid. URINE OUTPUT: 400 cc clear straw-colored urine. SPECIMEN: Placenta was sent for pathology. DESCRIPTION OF PROCEDURE: The patient is a 20 year-old 1, para 0 at 40 and 17th weeks estimated gestational age. She had care with Dr. Wilkinson. 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 She progressed to approximately 6 cm of dilatation with recurrent variable decelerations with minimal variability on external monitoring. Due to her slow progress and changes in heart tone monitoring, the decision was made to take her for primary section after discussion with myself and Dr. Rojo. The patient consented after discussion of risk of bleeding, infection and damage to surrounding organs. She was taken to the OR and had her previously placed laboring epidural dosed for anesthesia for section. She was prepped and draped in usual sterile fashion. After adequate level of anesthesia was assessed, a low transverse skin incision was made by knife and carried down through the subcutaneous fat to the level of the fascia. The fascia was nicked on both sides of the midline and extended horizontal using curved Bradshaw scissors. The superior free edge of the fascia was grasped with Miri clamps and the underlying rectus muscles were dissected free. The same was repeated inferiorly. The peritoneal cavity was opened in horizontal bluntly and extended. A bladder blade was created and reflected over the lower uterine segment. Horizontal uterine incision was made by knife and carried down to the level of the amniotic membranes which were carefully artificially ruptured with some clear fluid which was scant. A viable female was delivered from the vertex presentation with a strong cry immediately upon delivery. The oropharynx and nares bulb suctioned free. The cord was clamped and cut and she was handed off to the awaiting nursery team. Placenta was manually extracted and the uterus was exteriorized. The uterine cavity was sponge curetted clean with a lap sponge. The uterine incision was closed with #1 chromic in running locked fashion. Good closure and good hemostasis were achieved. Posterior cul-de-sac was wiped free of blood and clot with moist lap sponge and the uterus was returned to the peritoneal cavity. The lateral gutters were wiped free of blood and clot and again the uterine incision was carefully inspected and noted to have good closure and good hemostasis. Next, the fascia was closed with 0 Vicryl in a running fashion with good closure and good hemostasis at this level as well. The subcutaneous fat was irrigated with warm, sterile saline and any areas of bleeding were cauterized with electrocautery. The skin layer was closed with 4-0 undyed Vicryl in a running subcuticular fashion. Steri-Strips and occlusive dressing were placed over the incision and the patient was transferred to the recovery room in excellent condition.
[2020-12-07] MEDS: Colace 100 MG PO SCH ×2 (10:31→21:12)
[2020-12-07] MEDS: FERREX 150 PO SCH (10:31)
--- NOTE | 2020-12-07 15:52 | PCM.NOTE ---
Date and Time: 12/07/20 1550 Subjective Assessment: pod 1 pt resting in bed and doing well ambulating and tolerating diet vss afebrile abd; soft dressing intact uterus; firm lochia; mild hgb; 8.0 a/p sp csection pod 1 with anemia iron supplementation cpm anticipate discharge tomorrow OBJECTIVE DATA Vital Signs: Vital Signs - 24 hr Temp Pulse Resp BP BP Pulse Ox 12/07/20 08:00 98.4 F 75 18 111/59 98 12/07/20 07:00 97 12/07/20 04:00 98.5 F 77 17 115/57 99 12/07/20 00:00 98.5 F 81 17 121/59 97 12/06/20 21:40 85 124/63 12/06/20 21:15 98.2 F 83 19 145/63 98 12/06/20 20:00 98.4 F 90 18 110/54 98 12/06/20 19:45 89 18 110/54 98 12/06/20 19:15 91 H 20 116/57 98 12/06/20 18:45 86 18 116/56 99 12/06/20 18:30 88 20 125/54 99 12/06/20 18:15 87 18 113/52 100 12/06/20 18:00 98.4 F 104 H 18 117/55 100 12/06/20 16:00 94 H 20 129/59 129/59 Pain Assessment - Last Documented Pain Intensity 0 Intake and Output: Intake & Output 12/05/20 12/06/20 12/07/20 12/08/20 11:59 11:59 11:59 11:59 Intake Total 3886 Output Total 1999 Balance 1886 Weight 117.027 kg Lab Results: Lab Results-Last 24 Hours 12/06/20 12/06/20 12/06/20 Range/Units 09:01 15:29 15:40 WBC (4.0-10.5) K/mm3 RBC (4.1-5.4) M/mm3 Hgb (12.0-16.0) gm/dl Hct (35-47) % MCV (78-100) fl MCH (26-32) pg MCHC (32-36) g/dl RDW (11.5-14.0) % Plt Count (150-450) K/mm3 MPV (7.5-11.0) fl Eos # (Auto) (0-0.5) Segmented Neutrophils (36.0-66.0) % Band Neutrophils (0.0-2.0) % Lymphocytes (Manual) (24-44) % Monocytes (Manual) (0.0-12.0) % Platelet Estimate (NORMAL) RBC Morphology PT 12.5 H (9.95-12.35) SECONDS INR 1.11 (0.8-3.0) APTT 24.5 L (25.3-37.0) SECONDS Urine Color (YELLOW) Urine Appearance (CLEAR) Urine pH (5-6) Ur Specific [place] (1.005-1.025) Urine Protein (Negative) Urine Ketones (NEGATIVE) Urine Blood (0-5) Kwan/ul Urine Nitrite (NEGATIVE) Urine Bilirubin (NEGATIVE) Urine Urobilinogen (0-1) mg/dL Ur Leukocyte Esterase (NEGATIVE) Urine WBC (Auto) (0-5) /HPF Urine RBC (Auto) (0-2) /HPF U Epithel Cells (Auto) (FEW) /HPF Urine Bacteria (Auto) (NEGATIVE) /HPF Urine Culture Reflexed (NO) Urine Glucose (NEGATIVE) mg/dL Hep Bs Antigen Negative (Negative) ABO Group A Rh Factor POSITIVE Antibody Screen NEGATIVE (NEGATIVE) 12/06/20 12/07/20 Range/Units 15:40 04:24 WBC 17.8 H (4.0-10.5) K/mm3 RBC 2.81 L (4.1-5.4) M/mm3 Hgb 8.0 L D (12.0-16.0) gm/dl Hct 24.9 L (35-47) % MCV 88.6 (78-100) fl MCH 28.5 (26-32) pg MCHC 32.1 (32-36) g/dl RDW 13.9 (11.5-14.0) % Plt Count 224 (150-450) K/mm3 MPV 12.6 H (7.5-11.0) fl Eos # (Auto) 0 (0-0.5) Segmented Neutrophils 89 H (36.0-66.0) % Band Neutrophils 2 (0.0-2.0) % Lymphocytes (Manual) 6 L (24-44) % Monocytes (Manual) 3 (0.0-12.0) % Platelet Estimate NORMAL (NORMAL) RBC Morphology NORMAL PT (9.95-12.35) SECONDS INR (0.8-3.0) APTT (25.3-37.0) SECONDS Urine Color YELLOW (YELLOW) Urine Appearance CLEAR (CLEAR) Urine pH 7.0 (5-6) Ur Specific [place] 1.013 (1.005-1.025) Urine Protein NEGATIVE (Negative) Urine Ketones TRACE (NEGATIVE) Urine Blood MODERATE (0-5) Kwan/ul Urine Nitrite NEGATIVE (NEGATIVE) Urine Bilirubin NEGATIVE (NEGATIVE) Urine Urobilinogen NEGATIVE (0-1) mg/dL Ur Leukocyte Esterase NEGATIVE (NEGATIVE) Urine WBC (Auto) 3-5 (0-5) /HPF Urine RBC (Auto) >101 (0-2) /HPF U Epithel Cells (Auto) NONE (FEW) /HPF Urine Bacteria (Auto) NONE SEEN (NEGATIVE) /HPF Urine Culture Reflexed ORDERED SEPARATELY (NO) Urine Glucose NEGATIVE (NEGATIVE) mg/dL Hep Bs Antigen (Negative) ABO Group Rh Factor Antibody Screen (NEGATIVE)
[2020-12-07] MEDS ORDERED: Ambien 10 MG PO PRN (16:58)
[2020-12-07] MEDS ORDERED: Restoril 15 MG PO PRN (16:58)
[2020-12-07] MEDS ORDERED: NORCO 5/325 MG PO PRN (17:00)
[2020-12-07] MEDS: MOTRIN 400 MG PO PRN ×2 (17:08→23:24)
[2020-12-07] MEDS: FEOSOL 325 MG PO SCH (21:12)
[2020-12-08] MEDS: MOTRIN 400 MG PO PRN (07:04)
[2020-12-08 08:10] VITALS: BP 112/58; PULSE 72; O2SAT 99
--- NOTE | 2020-12-08 09:22 | PCM.NOTE ---
Date and Time: 12/08/20919 Subjective Assessment: pod 2 pt resting in bed and doing well ambulating and tolerating diet vss afebrile abd; soft dressing intact uterus; firm lochia; mild a/p sp csection pod 2 dc home today fu office 1 wk OBJECTIVE DATA Vital Signs: Vital Signs - 24 hr Temp Pulse Resp BP Pulse Ox 12/08/20 08:00 98.0 F 72 16 112/58 99 12/08/20 02:00 97.8 F 76 18 115/65 98 12/07/20 20:00 97.9 F 69 18 113/54 100 12/07/20 14:00 98.6 F 83 18 111/55 Pain Assessment - Last Documented Pain Intensity 3 Pain Scale Used 0-10 Pain Scale Intake and Output: Intake & Output 12/05/20 12/06/20 12/07/20 12/08/20 11:59 11:59 11:59 11:59 Intake Total 3886 950 Output Total 1999 Balance 1886 950 Weight 117.027 kg Lab Results: Lab Results-Last 24 Hours 12/06/20 Range/Units 09:01 Hep Bs Antigen Negative (Negative)
--- NOTE | 2020-12-08 09:26 | PCM.DS ---
Discharge Summary Date of Admission: 12/06/20 13:27 Admitting Physician: ISMAEL GALEANA DO Consults: Consults on Case 12/06/20 15:23 Notify Physician OF ADMISSION 12/06/20 17:00 Notify Anesthesia Provider PRN Primary Care Provider: ISMAEL GALEANA DO Allergies Allergies Sulfa (Sulfonamide Antibiotics) Allergy (Verified 12/03/20 23:33) Hospital Summary - Hospital Course Hospital Course: pt admitted on december 06 for being in labor and subsequently underwent primary csection secondary to nonreassuring heart rate tracing and delivered live [place] girl. during postop period did well able to ambulate and tolerate diet. stable hgb at 8.0 and was given iron supplementation for anemia. pt advised to fu in office in 1 wk for postop evaluation. all questions answered to her satisfaction. - Vitals & Intake/Output Vital Signs: Vital Signs Temperature 98.0 F 12/08/20 08:00 Pulse Rate 72 12/08/20 08:00 Respiratory Rate 16 12/08/20 08:00 Blood Pressure 112/58 12/08/20 08:00 O2 Sat by Pulse Oximetry 99 12/08/20 08:00 Intake & Output: Intake & Output 12/05/20 12/06/20 12/07/20 12/08/20 11:59 11:59 11:59 11:59 Intake Total 3886 950 Output Total 2000 Balance 1886 950 Weight 117.027 kg - Lab Result Diagrams: 12/07/20 04:24 Lab Results-Last 24 Hrs: Lab Results-Last 24 Hours 12/06/20 Range/Units 09:01 Hep Bs Antigen Negative (Negative) Micro Results-Entire Visit: Microbiology 12/06/20 15:40 Urine Culture - Preliminary Catherized NO GROWTH TO DATE Final Diagnosis/Problem List - Final Discharge Diagnosis/Problem (1) deliv NOS-unsp Current Visit: Yes Status: Acute Code(s): [id number] - - Discharge Disposition: Home, Self-Care Condition: Stable Prescriptions: No Action Vit 87/Iron/Folic/Dha [Prenate Mini Softgel] 1 ea DAILY Ondansetron ODT 4 MG [Zofran Odt 4 mg] 4 mg PO Q6H PRN PRN #10 tab.rapdis PRN Reason: Vomiting Follow up with: ISMAEL GALEANA DO [Primary Care Provider] - Call for Appointment (should fu in office next thursday no heavy lifting may take shower but no bath)
[2020-12-08] MEDS: FEOSOL 325 MG PO SCH (11:54)
[2020-12-08] MEDS: Colace 100 MG PO SCH (11:55)
[2020-12-08] MEDS: FERREX 150 PO SCH (12:36)
== END 2020-12-08 12:25 | disposition home or self-care (01) | DRG 788 ==
LOC: MED SURG 06:13 → OBSVTOIN 13:27
PROVIDERS: ADMIT Obstetrics & Gynecology; ATTEND Obstetrics & Gynecology
PROC: 10D00Z1 Extraction of Products of Conception, Low, Open Approach (ICD-10-PCS; principal; 2020-12-06)
DX: O76 Abnormality in fetal heart rate and rhythm complicating labor and delivery (principal); Z3A.40 40 weeks gestation of pregnancy; Z37.0 Single live birth
CPT/HCPCS: 36415; 64488; 76937; 76942; 80307; 81001; 85025; 85610; 85730; 86850; 86900; 86901; 87086; 87340; 88307; 90471; 90715; G0378; J0171; J0690; J1100; J1885; J2274; J2370; J2405; J2590; J2795; J3010; L0625; A9270-GY